=== PATIENT | female | born 1955 | race Caucasian/White ===

== ENCOUNTER 2020-03-26 07:52 | Emergency (ER) | payer SELFPAY ==
[~2020-03-26] VITALS: Ht 152.4 cm; Wt 65.3 kg
[2020-03-26 08:01] VITALS: BP 174/79
[2020-03-26] MEDS ORDERED: KETOROLAC 60 MG/2 ML VIAL IM ONE (08:10)
[2020-03-26 09:08] VITALS: BP 164/80
== END 2020-03-26 09:08 | disposition home or self-care (01) ==
LOC: MED 07:52
DX: S62.101A Fracture of unspecified carpal bone, right wrist, initial encounter for closed fracture (principal); I10 Essential (primary) hypertension; W18.39XA Other fall on same level, initial encounter; Y93.89 Activity, other specified; Y92.89 Other specified places as the place of occurrence of the external cause; Y99.8 Other external cause status
CPT/HCPCS: 29105; 73090; 73110; 96372; 99284; J1885